=== PATIENT | male | born 1950 | race Caucasian/White ===

== ENCOUNTER 2019-06-15 09:09 | Outpatient (CLI) | payer MEDICARE ==
--- NOTE | 2019-06-15 09:58 | ULT ---
ULTRASOUND ABDOMEN: HISTORY: Abdominal pain FINDINGS: The liver demonstrates homogeneous echotexture without focal mass or intrahepatic ductal dilatation. 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 No gallstones are seen. The gallbladder wall is at upper limits of normal in thickness measu ring about 3 mm. No pericholecystic fluid is seen. The common duct measures 7 mm in diameter. The tail of the pancreas is obscured by bowel gas. The visualized portions of the pancreas, aorta and IVC are unremarkable. No renal mass or hydronephrosis is seen. There is mild prominence of the right renal pelvis. No free fluid is noted. IMPRESSION: No significant abnormalities are identified.
== END 2019-06-15 09:10 | disposition home or self-care (01) ==
LOC: ULT 09:09
PROVIDERS: ATTEND Nurse Practitioner Family
DX: R10.13 Epigastric pain (principal)
CPT/HCPCS: 76700

== ENCOUNTER 2019-07-13 07:50 | Outpatient (CLI) | payer MEDICARE ==
--- NOTE | 2019-07-13 12:27 | NM ---
HEPATOBILIARY SCAN: History: Abdominal pain, epigastric pain. No gallstones on ultrasound of 06-15-19. Radiopharmaceutical: 5 mCi Technetium 99M Mebrofenin injected intravenously. FINDINGS: There is good tracer extraction by the liver with prompt excretion into the biliary tract and small b owel loops. Normal filling of the gallbladder. The calculated gallbladder ejection fraction measures 55%. IMPRESSION: Normal exam. POS: [facility]
== END 2019-07-13 07:51 | disposition home or self-care (01) ==
LOC: NM 07:50
PROVIDERS: ATTEND Specialist
DX: R10.13 Epigastric pain (principal)
CPT/HCPCS: 78227; A9537

== ENCOUNTER 2022-04-15 12:41 | Outpatient (CLI) | payer MEDICARE | END 2022-04-15 12:42 | disposition home or self-care (01) | LOC: BICCT 12:41 | PROVIDERS: ATTEND Internal Medicine Critical Care Medicine | DX: R91.8 Other nonspecific abnormal finding of lung field (principal) | CPT/HCPCS: 71250 ==

== ENCOUNTER 2023-07-06 15:10 | Outpatient (CLI) | payer MEDICARE | END 2023-07-06 15:11 | disposition home or self-care (01) | LOC: RAD 15:10 | PROVIDERS: ATTEND Internal Medicine Critical Care Medicine | DX: R06.00 Dyspnea, unspecified (principal) | CPT/HCPCS: 71046 ==

== ENCOUNTER 2023-09-27 20:40 | Inpatient (IN) | payer OTHER ==
[2023-09-27 22:46] VITALS: BMI 26.8
[2023-09-27] MEDS ORDERED: Ondansetron ODT 4 MG TAB PO PRN (23:40)
[2023-09-27] MEDS ORDERED: Acetaminophen 325 MG TAB PO PRN (23:40)
[2023-09-27] MEDS ORDERED: hydrALAZINE 20 MG/ML VIAL SLOW IVP PRN (23:40)
[2023-09-27] MEDS ORDERED: Ondansetron PF 4 MG/2 ML Vial IVP PRN (23:40)
[2023-09-27] MEDS ORDERED: Acetaminophen 650 MG Suppository PR PRN (23:40)
[2023-09-27] MEDS ORDERED: Ketorolac Tromethamine 30 MG/ML VIAL IVP PRN (23:46)
[2023-09-27] MEDS ORDERED: Clopidogrel Bisulfate 75 MG TAB PO SCH (23:59)
[2023-09-28] MEDS ORDERED: Pantoprazole 40 MG VIAL IVP SCH (00:15)
[2023-09-28] MEDS ORDERED: Albuterol 200 PUFF (6.7GM INHALER) INH PRN (00:52)
[2023-09-28 05:11] LABS: #Basophils 0.1 thou/uL (0.0-0.2); #Eosinphils 0.3 thou/uL (0.0-0.7); #Monocytes 1.3 thou/uL (0.11-0.59); #Neutrophils 6.2 thou/uL (1.40-6.50); %Basophils 0.8 % (0.0-1.0); %Eosinophils 2.4 % (0.0-10.0); %Lymphocytes 26.5 % (21.0-51.0); %Monocytes 12.3 % (0.0-10.0); %Neutrophils 57.7 % (42.0-75.0); Hematocrit 41.8 % (42.0-52.0); Hemoglobin 13.8 g/dL (14.0-18.0); Mean Corpuscular Volume 90.9 fl (78.0-98.0); Mean Platelet Volume 9.2 fL (7.4-10.4); Platelet Count 243 10x3/uL (130-400); RBC Distribution Width 13.2 % (11.5-14.5); White Blood Cell (WBC) Count 10.7 10x3/uL (4.8-10.8)
[2023-09-28 05:52] LABS: Anion Gap 12 mmol/L (10-20); BUN (Urea Nitrogen) 11 mg/dL (8.4-25.7); Calc. Creatinine Clearance 92 mL/min (70-130); Carbon Dioxide 24 mmol/L (23-31); Cardiac Risk 3.5 (Less than 4.5); Chloride 105 mmol/L (98-107); Cholesterol 114 mg/dl (< 200 Desired); Estimated GFR 93; Glucose 93 mg/dL (83-110); HDL Cholesterol 33 mg/dL (>60 Neg Risk); LDL Cholesterol, Calculated 42 mg/dL; Potassium 3.5 mmol/L (3.5-5.1); Sodium 137 mmol/L (136-145); Triglycerides 197 mg/dL (Less than 150)
[2023-09-28] MEDS: Mometasone 100 MCG/Formoterol 5 MCG 120 PUFF INHALER INH SCH ×2 (07:49→18:56)
[2023-09-28] MEDS: Pantoprazole 40 MG VIAL IVP SCH (08:50)
[2023-09-28] MEDS: Pregabalin 75 MG CAP PO SCH (08:56)
[2023-09-28] MEDS: Aspirin 81 mg Enteric Coated Tablet PO SCH (08:56)
[2023-09-28] MEDS: Meclizine HCl 25 MG TAB PO PRN (19:59)
[2023-09-28] MEDS ORDERED: Atorvastatin Calcium 40 MG TAB PO SCH (21:00)
[2023-09-28] MEDS ORDERED: rOPINIRole HCl 1 MG TAB PO SCH (21:00)
[2023-09-29 04:15] LABS: #Basophils 0.1 thou/uL (0.0-0.2); #Eosinphils 0.3 thou/uL (0.0-0.7); #Monocytes 0.8 thou/uL (0.11-0.59); %Basophils 0.7 % (0.0-1.0); %Eosinophils 3.1 % (0.0-10.0); %Lymphocytes 36.7 % (21.0-51.0); %Monocytes 10.2 % (0.0-10.0); %Neutrophils 49.1 % (42.0-75.0); Hematocrit 39.6 % (42.0-52.0); Hemoglobin 13.4 g/dL (14.0-18.0); Mean Corpuscular HGB CONC 33.8 g/dL (32.0-36.0); Mean Corpuscular Hemoglobin 30.5 pg (27.0-31.0); Mean Corpuscular Volume 90.2 fl (78.0-98.0); Mean Platelet Volume 9.4 fL (7.4-10.4); Platelet Count 229 10x3/uL (130-400); Red Blood Cell (RBC) Count 4.39 mill/uL (4.70-6.10); White Blood Cell (WBC) Count 8.1 10x3/uL (4.8-10.8)
[2023-09-29 04:47] LABS: Anion Gap 12 mmol/L (10-20); BUN (Urea Nitrogen) 15 mg/dL (8.4-25.7); Calc. Creatinine Clearance 93 mL/min (70-130); Calcium 8.6 mg/dL (7.8-10.44); Carbon Dioxide 25 mmol/L (23-31); Chloride 105 mmol/L (98-107); Estimated GFR 93; Glucose 94 mg/dL (83-110); Potassium 3.7 mmol/L (3.5-5.1); Sodium 138 mmol/L (136-145)
[2023-09-29] MEDS: Mometasone 100 MCG/Formoterol 5 MCG 120 PUFF INHALER INH SCH (06:19)
[2023-09-29 07:20] VITALS: BP 147/73; TEMP 97.7
[2023-09-29] MEDS: Pantoprazole 40 MG VIAL IVP SCH (08:17)
[2023-09-29] MEDS: Aspirin 81 mg Enteric Coated Tablet PO SCH (08:23)
[2023-09-29] MEDS: Meclizine HCl 25 MG TAB PO PRN (08:23)
[2023-09-29] MEDS: Pregabalin 75 MG CAP PO SCH (08:23)
[2023-09-29] MEDS ORDERED: Clopidogrel Bisulfate 75 MG TAB PO SCH (09:00)
[2023-09-29] MEDS ORDERED: methylPREDNISolone Sod Succ/PF 125 MG/2 ML VIAL IVP SCH (12:15)
[2023-09-29] MEDS ORDERED: predniSONE 20 MG TAB PO SCH (12:30)
== END 2023-09-29 12:30 | disposition home or self-care (01) | DRG 149 ==
LOC: 2SW 22:34 → OBSVTOIN 09-28 15:45
PROVIDERS: ADMIT Student in an Organized Health Care Education/Training Program; ATTEND Internal Medicine
DX: H81.10 Benign paroxysmal vertigo, unspecified ear (principal); G90.50 Complex regional pain syndrome I, unspecified; I10 Essential (primary) hypertension; J44.9 Chronic obstructive pulmonary disease, unspecified; F17.210 Nicotine dependence, cigarettes, uncomplicated; D72.829 Elevated white blood cell count, unspecified; I65.29 Occlusion and stenosis of unspecified carotid artery; Z98.890 Other specified postprocedural states; Z79.899 Other long term (current) drug therapy; Z79.82 Long term (current) use of aspirin; Z88.8 Allergy status to other drugs, medicaments and biological substances; Z90.89 Acquired absence of other organs
CPT/HCPCS: 36415; 70551; 80048; 80061; 85025; 93306; 93880; 96374; 96375; 96376; C9113; G0378; J1885; J7512

== ENCOUNTER 2024-09-13 13:49 | Outpatient (CLI) | payer MEDICARE | END 2024-09-13 13:50 | disposition home or self-care (01) | LOC: RAD 13:49 | PROVIDERS: ATTEND Internal Medicine Critical Care Medicine | DX: R06.00 Dyspnea, unspecified (principal); J98.4 Other disorders of lung | CPT/HCPCS: 71046 ==

== ENCOUNTER 2025-09-13 14:10 | Outpatient (CLI) | payer MEDICARE | END 2025-09-13 14:11 | disposition home or self-care (01) | LOC: RAD 14:10 | PROVIDERS: ATTEND Internal Medicine Critical Care Medicine | DX: R06.00 Dyspnea, unspecified (principal) | CPT/HCPCS: 71046 ==